=== PATIENT | male | born 1955 | race Caucasian/White ===

== ENCOUNTER 2016-11-17 23:56 | Inpatient (IN) | payer OTHER ==
[~2016-11-17] VITALS: Ht 170.2 cm; Wt 99.8 kg
[~2016-11-17 23:56] MED LIST: CARV3.122 PO; LOSA25TA13 PO; WARF1TAB47 PO
--- NOTE | 2016-11-18 01:00 | NUR ---
PT A/OX4 BREATHING EFFORTLESSLY ON ROOM AIR, PT STATES HE IS FEELING LIGHT HEADED AND HIS BP WAS HIGH. PT PUT ON THE MONITOR IN MD CHRISTEL MADE AWARE WILL CONTINUE TO MONITOR, PT DENIES PAIN OR SOB OR HEADACHE AT THIS TIME
--- NOTE | 2016-11-18 02:00 | NUR ---
PT LYING IN BED ON MONITOR, PT DENIES PAIN AT THIS TIME, MD MADE AWARE WILL CONTINUE TO MONITOR.
[2016-11-18 02:10] LABS: BASOPHILS % (AUTO) 0.4 % (0.0-2.0); EOSINOPHILS # (AUTO) 0.1 /CMM (0.0-0.7); EOSINOPHILS % (AUTO) 1.3 % (0.0-6.0); HEMATOCRIT 46 % (39-51); HEMOGLOBIN 15.6 g/dL (13.5-17.5); LYMPHOCYTES # (AUTO) 1.3 /CMM (0.8-4.8); LYMPHOCYTES % (AUTO) 15.2 % (20.0-44.0); MEAN CORPUSCULAR HEMOGLOBIN 29 PG (26.0-33.0); MEAN CORPUSCULAR HGB CONC 34 g/dl (31.0-36.0); MEAN CORPUSCULAR VOLUME 85 fL (80-96); MONOCYTES # (AUTO) 0.5 /CMM (0.1-1.30); MONOCYTES % (AUTO) 5.9 % (2.0-12.0); NEUTROPHILS # (AUTO) 6.6 /CMM (1.8-8.9); NEUTROPHILS % (AUTO) 77.2 % (43.0-81.0); PLATELET COUNT (AUTO) 160 /CMM (150-450); RDW COEFFICIENT OF VARIATION 14.3 (11.5-15.0); RED BLOOD CELL COUNT(AUTO) 5.48 MIL/uL (4.5-6.0); WHITE BLOOD COUNT (AUTO) 8.5 K/uL (4.3-11.0)
[2016-11-18 02:20] LABS: CALCIUM, SERUM 8.3 mg/dL (8.5-10.1); CREATININE 1.4 mg/dL (0.6-1.3); POTASSIUM 3.5 mmol/L (3.5-5.1)
[2016-11-18 02:28] LABS: TROPONIN I 0.222 ng/mL (0.00-0.056)
[2016-11-18] MEDS ORDERED: CT SWABBABLE VALVE TRANS SET 1 EA INFUS.SET MC ONE (02:42)
[2016-11-18] MEDS ORDERED: IOHEXOL-350 100 ML VIAL IV ONE (02:42)
[2016-11-18] MEDS ORDERED: IV NS 0.9% 250 ML IV ONE (02:42)
--- NOTE | 2016-11-18 02:50 | NUR ---
PT TOLD HE IS HAVING A HEART ATTACK PER MD KEY, IV PLACED AND CT CALLED. PT ON MONITOR, WILL CONTINUE TO MONITOR.
[2016-11-18] MEDS ORDERED: ONDANSETRON HCL/PF 4 MG/2 ML VIAL ONE (02:57)
[2016-11-18] MEDS ORDERED: ONDANSETRON HCL/PF 4 MG/2 ML VIAL IV ONE (03:00)
--- NOTE | 2016-11-18 03:00 | NUR ---
PT STATES HE IS PAIN FREE STILL AT THIS TIME, PT STATES HE GETS NAUSOUS WHEN HE GETS IV CONTRAST, MADE AWARE AND MARIA GUADALUPE ORDERED, WILL CONTINUE TO MONITOR.
--- NOTE | 2016-11-18 03:13 | NUR ---
PT TO CT
--- NOTE | 2016-11-18 03:54 | NUR ---
PT IN BED ON MONITOR, PT BACK FROM CT, PT DENIES PAIN AT THIS TIME, PT STATES HE IS FEELING BETTER, MD MADE AWARE WILL CONTINUE TO MONITOR.
--- NOTE | 2016-11-18 04:00 | NUR ---
[facility] CALLED FOR IMAGINING STUDY, THEY SAID THEY WILL READ IT NOW, MADE AWARE WILL CONTINUE TO MONITOR.
[2016-11-18 04:05] LABS: D-DIMER 0.47 mg/L(FEU (0.17-0.50); PROTHROMBIN TIME 31.6 SECS (9.5-12.7)
[2016-11-18 04:06] LABS: INR 2.77 (0.87-1.13)
[2016-11-18 04:19] LABS: BAND % (MANUAL) 1 % (0.0-5.0); LYMPHOCYTES % (MANUAL) 16 % (16-48); MONOCYTES % (MANUAL) 5 % (0-11.0); NEUTROPHILS % (MANUAL) 78 (42-76)
[2016-11-18] MEDS ORDERED: ASPIRIN 81 MG TAB.CHEW ONE (04:36)
[2016-11-18] MEDS ORDERED: CARVEDILOL 6.25 MG TABLET ONE (04:50)
[2016-11-18] MEDS ORDERED: LOSARTAN POTASSIUM 25 MG TABLET ONE (04:51)
[2016-11-18] MEDS ORDERED: HYDROCHLOROTHIAZIDE 25 MG TABLET ONE (04:51)
[2016-11-18] MEDS ORDERED: LOSARTAN POTASSIUM 25 MG TABLET PO ONE (05:00)
[2016-11-18] MEDS ORDERED: CARVEDILOL 6.25 MG TABLET PO ONE (05:00)
[2016-11-18] MEDS ORDERED: HYDROCHLOROTHIAZIDE 25 MG TABLET PO ONE (05:00)
[2016-11-18] MEDS ORDERED: ASPIRIN 325 MG TABLET PO ONE (05:00)
[2016-11-18] MEDS ORDERED: LOSARTAN POTASSIUM 25 MG TABLET PO SCH (06:00)
[2016-11-18] MEDS ORDERED: CARVEDILOL 3.125 MG TABLET PO SCH (06:00)
[2016-11-18] MEDS ORDERED: ONDANSETRON HCL/PF 4 MG/2 ML VIAL IVP PRN (06:00)
[2016-11-18] MEDS ORDERED: MAG HYDROX/AL HYDROX/SIMETH 30 ML UDC PO PRN (06:00)
[2016-11-18] MEDS ORDERED: WARFARIN SODIUM 1 MG TABLET PO SCH (06:00)
[2016-11-18] MEDS ORDERED: MAGNESIUM HYDROXIDE 30 ML UDC PO PRN (06:00)
[2016-11-18] MEDS ORDERED: HYDROCODONE/APAP 5/325MG 1 EACH TABLET PO PRN (06:00)
[2016-11-18] MEDS ORDERED: ZOLPIDEM TARTRATE 5 MG TABLET PO PRN (06:00)
[2016-11-18] MEDS ORDERED: Z GUARD REMEDY 2 OZ OINT TP PRN (06:00)
[2016-11-18] MEDS ORDERED: ACETAMINOPHEN 325 MG TABLET PO PRN (06:00)
[2016-11-18 06:20] VITALS: BP 140/70
--- NOTE | 2016-11-18 06:57 | NUR ---
REHANGER NOTES PT WAS RECEIVED BY ER VIA eEvent. WAS ABLE TO AMBULATE TO THE BED. NO SIGNS OF SOB OR DISTRESS. DENIES PAIN. TELE MONITOR SHOWS V PACE 75. BELONGING LIST COMPLETE. PT REFUSED TO KEEP MONEY IN SAFE, HE SIGNED AGREEING THAT WE ARE NOT RESPONSIBLE FOR HIS DALAL. BED IS IN LOW AND LOCKED POSITION, CALL LIGHT WITHIN REACH. WILL ENDORSE TO DAYSHIFT
[2016-11-18 07:07] VITALS: BP 140/70
--- NOTE | 2016-11-18 07:08 | NUR ---
AUDIOLOGY TECHNICIAN ADMITTING NOTES REPORTED THAT PT ARRIVED TO UNIT AT 0615H VIA GURNEY AND RECEIVED PT AWAKE IN BED IN NO ACUTE SIGNS OF DISTRESS. ALERT AND ORIENTED X4, SAME VERBALLY RESPONSIVE WITH NO C/O PAIN OR DISCOMFORTS AT THIS TIME. PT WITH DIAGNOSIS OF LIGHTHEADEDNESS AND HYPERTENSION. PT HAS SIGNIFICANT DX OF HTN AND HAD HEART VALVE REPLACEMENT ON 2009. PT HAD PACEMAKER ON LCW AND ON TELE-MONITORING RIGHT NOW WITH CURRENT READING OF SV-PACING AND HR ON THE 70'S, , DENIES CHEST PAIN OR LIGHTHEADEDNESS AT THIS TIME. IV ACCESS IN PLACE TO RFA #16, SL ONLY. SKIN IS INTACT. V/S TAKEN AND RECORDED. CALL LIGHT WITHIN REACH. KEPT BED LOW AND LOCK. ALL SAFETY MEASURES MAINTAINED. WILL CONTINUE TO MONITOR PT ACCORDINGLY.
[2016-11-18 08:00] VITALS: BP 140/70
[2016-11-18] MEDS ORDERED: CARV6.252 PO (11:24)
[2016-11-18] MEDS ORDERED: WARF2TAB6 PO (11:24)
[2016-11-18] MEDS ORDERED: LOSA1TAB35 PO (11:24)
[2016-11-18 12:00] VITALS: BP 161/76
[2016-11-18] MEDS: CARVEDILOL 6.25 MG TABLET PO SCH ×2 (13:29→21:14)
[2016-11-18] MEDS: ASPIRIN 81 MG TAB.CHEW PO SCH (13:29)
[2016-11-18 14:00] LABS: CHOLESTEROL 228 mg/dL (<200); HDL CHOLESTEROL 26 mg/dL (40-60); LDL 85 mg/dL (0-99); TRIGLYCERIDES 714 mg/dL (30-150)
[2016-11-18 16:00] VITALS: BP 141/86
[2016-11-18] MEDS ORDERED: WARFARIN SODIUM 2 MG TABLET PO SCH (17:00)
--- NOTE | 2016-11-18 18:11 | NUR ---
RN NOTES PATIENT WITH HIGH TRIGLYCERIDE 714 AND STILL WITH ELEVATED TROPONIN LEVEL 0.238. MADE AWARE.
--- NOTE | 2016-11-18 18:47 | NUR ---
ELEVATED MOTORMAN CLOSING NOTES PATIENT RESTING IN BED IN NO ACUTE SIGNS OF DISTRESS. ALERT AND ORIENTED X4, NO C/O PAIN OR DISCOMFORTS THROUGHOUT THE DAY. PT HAD PACEMAKER ON LCW AND ON TELE-MONITORING WITH CURRENT READING OF V-PACING, HR ON THE 80'S, DENIES CHEST PAIN OR LIGHT HEADEDNESS SINCE ADMITTED TO UNIT. IV ACCESS ON LFA INTACT AND PATENT. ON ROOM AIR WITH NO SOB NOTED. ALL NEEDS ATTENDED WELL. CALL LIGHT WITHIN REACH. WILL ENDORSED TO BIODIESEL ENGINEERING MANAGER NURSE FOR [facility].
--- NOTE | 2016-11-18 19:30 | NUR ---
TRANSITION ADVISOR NOTE RECEIVED PATIENT FROM DAY SHIFT, PATIENT IS ALERT AND ORIENTEDX4, DENIES RESPIRATORY DISTRESS OR PAIN AT THIS TIME, IV ON LEFT FA IS PATENT AND INTACT, HL ONLY. TELE MONITOR V PACING 75. SRX2, BED IN LOW POSITION, CALL LIGHT WITHIN REACH, WILL CONTINUE TO MONITOR PATIENT.
[2016-11-18 20:00] VITALS: BP 146/91
[2016-11-19] VITALS: BP 142/88
[2016-11-19 04:00] VITALS: BP 138/91
--- NOTE | 2016-11-19 06:48 | NUR ---
MUSEUM OR ZOO DIRECTOR NOTE PATIENT IS RESTING IN BED COMFORTABLY, NO S/S OF RESPIRATORY DISTRESS OR PAIN AT THIS TIME. TELE MONITOR V PACING 75. WILL ENDORSE TO DAY SHIFT NURSE FOR [facility].
[2016-11-19 07:25] LABS: BASOPHILS # (AUTO) 0.1 /CMM (0.0-0.2); BASOPHILS % (AUTO) 1.1 % (0.0-2.0); EOSINOPHILS # (AUTO) 0.1 /CMM (0.0-0.7); EOSINOPHILS % (AUTO) 1.5 % (0.0-6.0); HEMATOCRIT 47 % (39-51); HEMOGLOBIN 15.7 g/dL (13.5-17.5); LYMPHOCYTES # (AUTO) 1.4 /CMM (0.8-4.8); LYMPHOCYTES % (AUTO) 19.5 % (20.0-44.0); MEAN CORPUSCULAR HEMOGLOBIN 28 PG (26.0-33.0); MEAN CORPUSCULAR HGB CONC 34 g/dl (31.0-36.0); MEAN CORPUSCULAR VOLUME 84 fL (80-96); MONOCYTES # (AUTO) 0.4 /CMM (0.1-1.30); MONOCYTES % (AUTO) 5.9 % (2.0-12.0); NEUTROPHILS # (AUTO) 5.2 /CMM (1.8-8.9); PLATELET COUNT (AUTO) 150 /CMM (150-450); RDW COEFFICIENT OF VARIATION 14.2 (11.5-15.0); RED BLOOD CELL COUNT(AUTO) 5.55 MIL/uL (4.5-6.0); WHITE BLOOD COUNT (AUTO) 7.2 K/uL (4.3-11.0)
--- NOTE | 2016-11-19 07:30 | NUR ---
WORD PROCESSING SPECIALIST AM NOTES PATIENT IN BED, AAO X 4, ON RA, NO SOB, NOT IN ANY DISTRESS, DENIES PAIN AT THIS TIME, TELEMETRY READS V PACING HR 75. LEFT FA G16 IVHL FLUSHES WELL SITE CLEAR. CARDIAC DIET, BRP, SRX2, BED IN LOW POSITION, CALL LIGHT WITHIN REACH, WILL CONTINUE TO MONITOR PATIENT.
[2016-11-19 07:43] LABS: INR 2.46 (0.87-1.13); PROTHROMBIN TIME 27.9 SECS (9.5-12.7)
[2016-11-19 07:44] LABS: CALCIUM, SERUM 7.9 mg/dL (8.5-10.1); CREATININE 1.1 mg/dL (0.6-1.3); MAGNESIUM 2.1 mg/dL (1.8-2.4); PHOSPHORUS 3.2 mg/dL (2.5-4.9); POTASSIUM 3.7 mmol/L (3.5-5.1)
[2016-11-19 08:00] VITALS: BP_SYST 159; BP_DIAS 88; BP_DIAS 97
[2016-11-19] MEDS ORDERED: LOSARTAN/HCTZ 50-12.5MG/ 1 EA TABLET PO SCH (09:30)
--- NOTE | 2016-11-19 09:30 | NUR ---
INGREDIENT SCALER HELPER NOTES ADMINISTERED DUE MEDS.
[2016-11-19] MEDS: CARVEDILOL 6.25 MG TABLET PO SCH (09:31)
[2016-11-19] MEDS: ASPIRIN 81 MG TAB.CHEW PO SCH (09:31)
[2016-11-19] MEDS ORDERED: LOSARTAN POTASSIUM 50 MG TABLET PO ONE (11:30)
[2016-11-19 12:00] VITALS: BP_SYST 141; BP_DIAS 88; BP_DIAS 89
[2016-11-19] MEDS ORDERED: ASPI81TA2 PO (12:38)
[2016-11-19] MEDS ORDERED: ROSU10TA PO (12:38)
[2016-11-19 14:59] VITALS: BP 141/88
--- NOTE | 2016-11-19 15:00 | NUR ---
SALES DEVELOPMENT CONSULTANT NOTES PATIENT SEEN BY DR. HOLLAND EARLIER. PATIENT DISCHARGED TO HOME TODAY PER MD IN STABLE CONDITION. PROVIDED DC INSTRUCTIONS, MED RECON LIST/PRESCRIPTION AND HEALTH TEACHINGS. RT FOREARM IV ACCESS REMOVE, CATH TIP COMPLETE. NO BLEEDING. DRESSING APPLIED. ALL BELONGINGS CHECKED AND RETURNED. ALL PAPERWORKS SIGNED. PATIENT TO SEE FOLLOW UP WITH HIS PCP IN 1-2 WEEKS AND WILL MAKE HIS OWN APPOINTMENT. ACCOMPANIED BY MALLIKA DAO TO LOBBY VIA WHEELCHAIR WILL TRANSPORT SELF HOME VIA PRIVATE CAR.
== END 2016-11-19 15:00 | disposition home or self-care (01) | DRG 280 ==
LOC: ER 23:56 → TELE 11-18 05:57
PROVIDERS: ADMIT Family Medicine; ATTEND Family Medicine
DX: I21.4 Non-ST elevation (NSTEMI) myocardial infarction (principal); N17.0 Acute kidney failure with tubular necrosis; I50.20 Unspecified systolic (congestive) heart failure; E66.9 Obesity, unspecified; E78.5 Hyperlipidemia, unspecified; I07.1 Rheumatic tricuspid insufficiency; E11.65 Type 2 diabetes mellitus with hyperglycemia; I35.0 Nonrheumatic aortic (valve) stenosis; I48.0 Paroxysmal atrial fibrillation; I70.0 Atherosclerosis of aorta; I71.4 Abdominal aortic aneurysm, without rupture; K21.9 Gastro-esophageal reflux disease without esophagitis; K40.20 Bilateral inguinal hernia, without obstruction or gangrene, not specified as recurrent; K57.30 Diverticulosis of large intestine without perforation or abscess without bleeding; Z68.34 Body mass index [BMI] 34.0-34.9, adult; Z79.01 Long term (current) use of anticoagulants; Z95.0 Presence of cardiac pacemaker; Z82.49 Family history of ischemic heart disease and other diseases of the circulatory system; Z95.2 Presence of prosthetic heart valve; Z87.891 Personal history of nicotine dependence; I16.0 Hypertensive urgency; I11.0 Hypertensive heart disease with heart failure
CPT/HCPCS: 36415; 71010-TC; 80048-TC; 80061-TC; 83735-TC; 84100-TC; 84484-TC; 85025-TC; 85378-TC; 85610-TC; 86850-TC; 87081-TC; 93307-TC; J2405; J7050; Q9967; Z7610

== ENCOUNTER 2016-12-06 14:31 | Inpatient (IN) | payer OTHER ==
[~2016-12-06] VITALS: Ht 170.2 cm; Wt 99.8 kg
[~2016-12-06 14:31] MED LIST changes: +ASPI81TA2 PO; -CARV3.122 PO; +CARV6.252 PO; +LOSA1TAB35 PO; -LOSA25TA13 PO; +ROSU10TA PO; -WARF1TAB47 PO; +WARF2TAB6 PO
--- NOTE | 2016-12-06 14:35 | NUR ---
BRAN FROM HOME DT CHEST TIGHTNESS, 2-06/19 STARTED 0700 TODAY. PATIENT RECEIVED AAO4. APPEARS IN NO APPARENT DISTRESS. RESPIRATION EVEN AND UNLABORED, SKIN IS WARM TO TOUCH AND NON DIAPHORETIC. PT IS AFEBRILE. PATIENT BELIEVES, IT COULD BE BECAUSE OF NEW MED-- METFORMIN, VSS AT THIS TIME.
--- NOTE | 2016-12-06 14:40 | NUR ---
EKG IN PROGRESS
--- NOTE | 2016-12-06 14:44 | NUR ---
MD BONILLA AT
[2016-12-06 14:55] LABS: BASOPHILS # (AUTO) 0.1 /CMM (0.0-0.2); BASOPHILS % (AUTO) 0.6 % (0.0-2.0); EOSINOPHILS # (AUTO) 0.1 /CMM (0.0-0.7); EOSINOPHILS % (AUTO) 1.2 % (0.0-6.0); HEMATOCRIT 46 % (39-51); HEMOGLOBIN 15.3 g/dL (13.5-17.5); LYMPHOCYTES # (AUTO) 1.3 /CMM (0.8-4.8); LYMPHOCYTES % (AUTO) 14.3 % (20.0-44.0); MEAN CORPUSCULAR HEMOGLOBIN 29 PG (26.0-33.0); MEAN CORPUSCULAR HGB CONC 33 g/dl (31.0-36.0); MEAN CORPUSCULAR VOLUME 85 fL (80-96); MONOCYTES # (AUTO) 0.5 /CMM (0.1-1.30); MONOCYTES % (AUTO) 5.2 % (2.0-12.0); NEUTROPHILS # (AUTO) 7.1 /CMM (1.8-8.9); NEUTROPHILS % (AUTO) 78.7 % (43.0-81.0); PLATELET COUNT (AUTO) 187 /CMM (150-450); RDW COEFFICIENT OF VARIATION 13.3 (11.5-15.0); RED BLOOD CELL COUNT(AUTO) 5.36 MIL/uL (4.5-6.0); WHITE BLOOD COUNT (AUTO) 9.1 K/uL (4.3-11.0)
[2016-12-06 15:05] LABS: CALCIUM, SERUM 8.6 mg/dL (8.5-10.1); CREATININE 1.4 mg/dL (0.6-1.3); POTASSIUM 3.7 mmol/L (3.5-5.1)
[2016-12-06 15:10] LABS: INR 2.1 (0.87-1.13); PROTHROMBIN TIME 22.7 SECS (9.5-12.7)
[2016-12-06 15:15] LABS: TROPONIN I 0.131 ng/mL (0.00-0.056)
[2016-12-06] MEDS ORDERED: NITROGLYCERIN PACKET 1 GM PACKET ONE (15:24)
[2016-12-06] MEDS ORDERED: NITROGLYCERIN PACKET 1 GM PACKET TOP ONE (15:30)
--- NOTE | 2016-12-06 15:38 | NUR ---
CALLED [facility], SERVICE ORDER EXPEDITER WAS PAGED.
--- NOTE | 2016-12-06 15:45 | NUR ---
Report given to JAMIL Kirkland for [facility] Tele [id number]
[2016-12-06] MEDS ORDERED: METF500T4 PO (15:54)
[2016-12-06] MEDS ORDERED: ATOR40TA PO (15:54)
--- NOTE | 2016-12-06 16:06 | NUR ---
PATIENT TRANSPORTED TO TELE 1. [facility]
[2016-12-06] MEDS ORDERED: ONDANSETRON HCL/PF 4 MG/2 ML VIAL IVP PRN (16:30)
[2016-12-06] MEDS ORDERED: ZOLPIDEM TARTRATE 5 MG TABLET PO PRN (16:30)
[2016-12-06] MEDS ORDERED: Z GUARD REMEDY 2 OZ OINT TP PRN (16:30)
[2016-12-06] MEDS ORDERED: HYDROCODONE/APAP 5/325MG 1 EACH TABLET PO PRN (16:30)
[2016-12-06] MEDS ORDERED: ACETAMINOPHEN 325 MG TABLET PO PRN (16:30)
[2016-12-06] MEDS ORDERED: MAGNESIUM HYDROXIDE 30 ML UDC PO PRN (16:30)
--- NOTE | 2016-12-06 16:30 | NUR ---
BELLA RN NOTE RECEIVED PATIENT FROM ER WITH DX CHEST PAIN UNDER CARE FIONA GIPSON RN CHECK SCALER , ALERT ,ORIENTEDX3 HOSPITAL ORIENTATION ONE , VS TAKE, . BED IN LOWEST AND LOCKED POSITION , CALL LIGHT WITHIN REACH , PLAN OF CARE DISCUSSED WITH PATIENT , FIONA IGPSON AT BEDSIDE , SIGNED CONSENT FOR CT CHEST PELVIS AND ABDOMEN , NO SOB NOTED , NO C\O CHEST PAIN AT THIS TIME , WILL CONT TO MONITOR CLOSELY ZOFRAN 4MG PRIOR PROCEDURE GIVEN ORDERED
[2016-12-06 16:40] VITALS: BP 153/80
[2016-12-06] MEDS ORDERED: IOHEXOL-350 100 ML VIAL IV ONE (16:57)
[2016-12-06] MEDS ORDERED: IV NS 0.9% 250 ML IV ONE (16:57)
[2016-12-06] MEDS ORDERED: DEXTROSE 50%-WATER 50 ML DISP.SYRIN IV PRN (17:00)
[2016-12-06] MEDS: METFORMIN 500 MG TABLET PO SCH (17:00)
[2016-12-06] MEDS ORDERED: Medication Not On Formulary EA (Losartan/Hydrochlorothiazide (Losartan-Hctz 100-12.5 Mg PO SCH (17:00)
[2016-12-06] MEDS: CARVEDILOL 6.25 MG TABLET PO SCH (17:32)
[2016-12-06] MEDS: IV NS 0.9% 1,000 ML IV PRN (17:35)
[2016-12-06] MEDS: BLOOD SUGAR DIAGNOSTIC 1 EACH STRIP IN SCH ×2 (17:40→21:56)
[2016-12-06 17:43] VITALS: BP_SYST 133; BP_SYST 143; BP_DIAS 74; BP_DIAS 80
[2016-12-06 17:44] VITALS: BP 147/77
[2016-12-06] MEDS ORDERED: WARFARIN SODIUM 2 MG TABLET PO SCH (18:00)
[2016-12-06] MEDS: ACETYLCYSTEINE 20% ORAL SOLN 6,000 MG/30 ML VIAL PO SCH (18:02)
[2016-12-06] MEDS: INSULIN REGULAR, HUMAN 100 UNIT/ML 3 ML VIAL SQ PRN (18:05)
[2016-12-06 20:00] VITALS: BP_SYST 110; BP_SYST 119; BP_DIAS 65; BP_DIAS 75
--- NOTE | 2016-12-06 20:00 | NUR ---
FULL DECATOR OPERATOR; RECEIVED PT FROM DAY SHIFT, PT IS AAJoe X4, AMBULATORY, DENIED CHEST PAIN. V-PAING ON MONITOR. ON ROOM AIR, SATURATING 94%.LEFT FOREARM #18 INFUSING IV FLUID NS AT 75 ML/HR. ALL NEEDS ATTENDED. COMPLETE ASSESSMENT SEE ON FLOW SHEET. V/S STABLE. KEEP MONITORING.
[2016-12-06] MEDS ORDERED: ATORVASTATIN 40 MG TABLET PO SCH (22:00)
[2016-12-07] VITALS: BP 129/80
[2016-12-07 04:00] VITALS: BP 129/79
[2016-12-07 04:07] LABS: BASOPHILS % (AUTO) 0.5 % (0.0-2.0); EOSINOPHILS # (AUTO) 0.1 /CMM (0.0-0.7); EOSINOPHILS % (AUTO) 1.6 % (0.0-6.0); HEMATOCRIT 41 % (39-51); LYMPHOCYTES # (AUTO) 1.6 /CMM (0.8-4.8); LYMPHOCYTES % (AUTO) 25.3 % (20.0-44.0); MEAN CORPUSCULAR HEMOGLOBIN 29 PG (26.0-33.0); MEAN CORPUSCULAR HGB CONC 34 g/dl (31.0-36.0); MEAN CORPUSCULAR VOLUME 85 fL (80-96); MONOCYTES # (AUTO) 0.4 /CMM (0.1-1.30); MONOCYTES % (AUTO) 6.7 % (2.0-12.0); NEUTROPHILS # (AUTO) 4.2 /CMM (1.8-8.9); NEUTROPHILS % (AUTO) 65.9 % (43.0-81.0); PLATELET COUNT (AUTO) 168 /CMM (150-450); RDW COEFFICIENT OF VARIATION 14.7 (11.5-15.0); RED BLOOD CELL COUNT(AUTO) 4.88 MIL/uL (4.5-6.0); WHITE BLOOD COUNT (AUTO) 6.4 K/uL (4.3-11.0)
[2016-12-07 04:22] LABS: CALCIUM, SERUM 8.1 mg/dL (8.5-10.1); CREATININE 1.1 mg/dL (0.6-1.3); MAGNESIUM 2.1 mg/dL (1.8-2.4); PHOSPHORUS 3.8 mg/dL (2.5-4.9); POTASSIUM 3.3 mmol/L (3.5-5.1)
[2016-12-07] MEDS: IV NS 0.9% 1,000 ML IV PRN (05:24)
--- NOTE | 2016-12-07 05:42 | NUR ---
BUNDLE TIER: PT BEING STABLE THE WHOLE SHIFT. NOT SIGNIFICANT CHANGES NOTED. V/S STABLE. V-PACING ON MONITOR. DENIED ANY PAIN. CONTINUE ONGOING IV FLUID NS AT 75 ML/HR. ABLE TO AMBULATES TO BATHROOM. NO DISTRESS. SERIAL TROPONIN TRENDING DOWN. WILL ENDORSE CARE TO NEXT SHIFT.
[2016-12-07] MEDS ORDERED: PANTOPRAZOLE 40 MG TABLET.DR PO SCH (07:30)
--- NOTE | 2016-12-07 07:45 | NUR ---
BELLA INITIAL NOTE RECEIVED PT IN BED, A/O X4, FOLLOWS COMMANDS,ABLE TO MAKE NEEDS KNOWN, PT IS ON RA ,SATING 100%, NO S/S OF RESP.DISTRESS OR SOB NOTED AT THIS TIME, BREATHING IS UNLABORED AND EVEN, PT IS ON TELE MONITOR SHOWING SR W/ V PACING @76 BPM, NO S/S OF CHEST PAIN OR DISCOMFORT AT THIS TIME, LFA #18G, RUNNING NS @75ML/HR, C/D/I/PATENT, FLUSHING WELL, NO S/S OF INFECTION/ INFILTRATION NOTED AT THIS TIME, PT IS CURRENTLY NPO AT THIS TIME, ALL SAFETY MEASURES IN PLACE AT ALL TIMES, CALL LIGHT WITHIN EASY REACH, WILL MONITOR PT CLOSELY FOR CHANGES
[2016-12-07 08:00] VITALS: BP 134/86
[2016-12-07] MEDS: METFORMIN 500 MG TABLET PO SCH (08:55)
[2016-12-07] MEDS: BLOOD SUGAR DIAGNOSTIC 1 EACH STRIP IN SCH ×2 (08:55→11:24)
[2016-12-07] MEDS: ACETYLCYSTEINE 20% ORAL SOLN 6,000 MG/30 ML VIAL PO SCH (08:55)
[2016-12-07] MEDS: CARVEDILOL 6.25 MG TABLET PO SCH (08:56)
[2016-12-07] MEDS ORDERED: LOSARTAN POTASSIUM 50 MG TABLET PO SCH (09:00)
[2016-12-07] MEDS ORDERED: ASPIRIN 81 MG TAB.CHEW PO SCH (09:00)
[2016-12-07] MEDS ORDERED: HYDROCHLOROTHIAZIDE 25 MG TABLET PO SCH (09:00)
[2016-12-07] MEDS: INSULIN REGULAR, HUMAN 100 UNIT/ML 3 ML VIAL SQ PRN ×2 (09:01→11:30)
[2016-12-07] MEDS ORDERED: POTASSIUM CHLORIDE 20 MEQ TAB.PRT.SR PO ONE (10:00)
[2016-12-07] MEDS ORDERED: DILTIAZEM HCL CD 240 MG PO SCH (10:30)
[2016-12-07] MEDS ORDERED: CARVEDILOL 6.25 MG TABLET PO ONE (11:00)
[2016-12-07] MEDS ORDERED: DILT240C88 PO (11:52)
[2016-12-07] MEDS ORDERED: CARV6.252 PO (11:52)
[2016-12-07] MEDS ORDERED: METF500T4 PO (11:52)
[2016-12-07 12:00] VITALS: BP 136/89
--- NOTE | 2016-12-07 13:30 | NUR ---
BELLA DISCHARGE NOTE RECEIVED ORDERS TO DISCHARGE PT, ALL DISCHARGE INSTRUCTIONS GIVEN, ALL PAPERWORK COMPLETED, ALL BELONGINGS WITH PT, BELONGINGS LIST SIGNED, DISCHARGE INSTRUCTIONS SIGNED, PT HAS ALL PAPERWORK WITH HIM, MD AT BEDSIDE, ANSWERED ALL QUESTIONS AND CONCERNS, RX WITH PT, QUESTIONS ANSWERED, IV REMOVED, WRISTBAND REMOVED, ALL MEDICATIONS GIVEN, ALL ORDERS CARRIED OUT, PT DISCHARGED HOME VIA TAXI, PT WHEELCHAIR TO WAITING ROOM
[2016-12-07] MEDS ORDERED: CARVEDILOL 6.25 MG TABLET PO SCH (17:00)
== END 2016-12-07 13:26 | disposition home or self-care (01) | DRG 280 ==
LOC: ER 14:33 → TELE-TD 15:54
PROVIDERS: ADMIT Nurse Practitioner Acute Care; ATTEND Nurse Practitioner Acute Care
DX: I21.4 Non-ST elevation (NSTEMI) myocardial infarction (principal); N17.0 Acute kidney failure with tubular necrosis; I77.77 Dissection of artery of lower extremity; I50.9 Heart failure, unspecified; E66.9 Obesity, unspecified; E78.5 Hyperlipidemia, unspecified; F41.9 Anxiety disorder, unspecified; Z87.891 Personal history of nicotine dependence; Z95.0 Presence of cardiac pacemaker; K21.9 Gastro-esophageal reflux disease without esophagitis; I48.0 Paroxysmal atrial fibrillation; I11.0 Hypertensive heart disease with heart failure; I25.10 Atherosclerotic heart disease of native coronary artery without angina pectoris; Z79.01 Long term (current) use of anticoagulants; E11.65 Type 2 diabetes mellitus with hyperglycemia; I71.4 Abdominal aortic aneurysm, without rupture; I72.3 Aneurysm of iliac artery; Z68.34 Body mass index [BMI] 34.0-34.9, adult; Z79.84 Long term (current) use of oral hypoglycemic drugs; T38.3X5A Adverse effect of insulin and oral hypoglycemic [antidiabetic] drugs, initial encounter; Y92.009 Unspecified place in unspecified non-institutional (private) residence as the place of occurrence of the external cause
CPT/HCPCS: 36415; 71010-TC; 80048-TC; 82962-TC; 83735-TC; 84100-TC; 84484-TC; 85025-TC; 85730-TC; 87081-TC; A4606; J1815; J2405; J7030; J7050; Q9967; Z7610

== ENCOUNTER 2023-02-05 13:38 | Emergency (ER) | payer MEDICARE, BC ==
[~2023-02-05] VITALS: Ht 170.2 cm; Wt 94.3 kg
[~2023-02-05 13:38] MED LIST changes: +ASPI-1169 PO; -ASPI81TA2 PO; +ATOR40TA PO; +DILT240C88 PO; -LOSA1TAB35 PO; +LOSA1TAB42 PO; +METF-440 PO; -ROSU10TA PO; +WARF-68 PO; -WARF2TAB6 PO
[2023-02-05] MEDS ORDERED: ACET1TAB23 PO (16:07)
[2023-02-05 16:21] VITALS: BP 121/81; TEMP 98.3; O2SAT 100
== END 2023-02-05 16:21 | disposition home or self-care (01) ==
LOC: ER 13:49
DX: M25.561 Pain in right knee (principal); I10 Essential (primary) hypertension; E11.9 Type 2 diabetes mellitus without complications; Z79.899 Other long term (current) drug therapy
CPT/HCPCS: 73564-TC